=== PATIENT | male | born 1965 | race Caucasian/White ===

== ENCOUNTER 2017-02-22 07:23 | Emergency (ER) | payer OTHER ==
[~2017-02-22] VITALS: Ht 172.7 cm; Wt 80.1 kg
[2017-02-22 07:32] VITALS: Ht 172.7 cm; Wt 80.1 kg
[2017-02-22] MEDS ORDERED: SULF1TAB31 PO (07:46)
--- NOTE | 2017-02-22 07:46 | ERD ---
ER Documentation Chief Complaint Date/Time DATE: 02/22/17 Chief Complaint Wound of left foot x 4 days HPI The patient is a 51-year-old male who presents to the Emergency Department with complaint of a wound to the dorsum of the left foot. The patient reports that four days ago he noted a small blister to the dorsum of the left foot, just proximal to the fourth toe. After presentation, the patient developed minimal surrounding redness, warmth and tenderness. Two days ago he noted that the blister popped, and since, the base has been exposed. He continues to experience a throbbing, 3/10, constant pain to the site of the wound, and the surrounding erythema remains present. He denies any radiation of pain. Denies purulent drainage or bleeding from the wound. Denies any red streaking. Denies fevers, sweats, chills, nausea or vomiting. Denies chest pain, palpitations or shortness of breath. Denies history of diabetes, HIV or any other immunocompromised state. Denies coldness or swelling to the distal extremity. Denies any restricted range of motion. Denies any direct trauma or known injury to the foot. ROS All systems reviewed and are negative except as per history of present illness. Medications Home Meds Active Scripts Ibuprofen* (Motrin*) 600 Mg Tab, 600 MG PO Q6, #30 TAB Prov:CHARLIE BAUER PA-C 02/22/17 Cephalexin* (Keflex*) 500 Mg Capsule, 500 MG PO QID for 7 Days, #28 CAP Prov:HCARLIE BAUER PA-C 02/22/17 Sulfamethoxazole/Trimethoprim* (Bactrim Ds* Tablet) 1 Each Tablet, 1 TAB PO BID for 10 Days, TAB Prov:CHARLIE BAUER PA-C 02/22/17 Allergies Allergies: Coded Allergies: No Known Allergy (Unverified , 02/22/17) PMhx/Soc Medical and Surgical Hx: pt denies Medical Hx History of Surgery: Yes (knee surgery as a kid) Anesthesia Reaction: No Hx Neurological Disorder: No Hx Respiratory Disorders: No Hx Cardiac Disorders: No Hx Psychiatric Problems: No Hx Miscellaneous Medical Probl: No Hx Alcohol Use: No Hx Substance Use: No Hx Tobacco Use: Yes Smoking Status: Current every day smoker Physical Exam Vitals Vital Signs Date Time Temp Pulse Resp B/P Pulse Ox O2 Delivery O2 Flow Rate FiO2 02/22/17 07:32 98.1 71 18 139/71 99 Physical Exam GENERAL: Well-developed, well-nourished, male, in no acute distress. HEENT: Head is normocephalic, atraumatic. No scleral pallor or icterus. Conjunctiva pink. Moist mucous membranes. No lip or tongue swelling. Clear oropharynx. NECK: Supple. No tenderness. Full range of motion. RESPIRATORY: Lungs are clear to auscultation bilaterally. Equal breath sounds. Normal expiratory effort. CARDIOVASCULAR: Regular rate and rhythm. S1 and S2 normal. EXTREMITIES: No clubbing, cyanosis, or edema. Normal skin perfusion. Joints non- tender, no joint effusion. Full range of motion of both the upper and lower extremities bilaterally. Distal pulses are palpable, 2+ bilaterally. Capillary refill is less than 2 seconds. NEUROLOGIC: The patient is alert, awake, and oriented x 3. No focal neurologic deficits. INTEGUMENT: 0.7 cm x 0.7 cm superficial wound to the dorsum of the left foot, proximal to the fourth toe, with a 1 cm region of surrounding erythema, warmth and tenderness. No swelling. No drainage. No bleeding. No lymphatic streaking. No crepitus. No underlying structure visualized. PSYCHIATRIC: Cooperative. Appropriate. Results 24 hrs Current Medications Medications (Trade) Dose Ordered Sig/Cynthia Route PRN Reason Start Time Stop Time Status Last Admin Dose Admin Bacitracin (Bacitracin Oint (Ud)) 1 applic ONCE ONCE TOP 02/22/17 08:00 02/22/17 08:01 Procedures/MDM MEDICAL DECISION MAKING: This is a 51-year-old male presenting to the Emergency Department with complaint of spreading erythema surrounding wound to the left foot. The patient had a superficial wound with surrounding spreading erythema on the dorsum of his left foot that is warm to touch and tender to palpation on physical examination. However, the patient's oropharynx and airway was patent, and exhibited no breathing difficulties, wheezing, tongue swelling or lip swelling. His vital signs were stable, and he was afebrile, with no recent history of fevers or chills. The differential diagnosis includes, but is not limited to, allergic reaction, insect bite, fungal infection, cellulitis, MRSA, impetigo, shingles, herpes simplex virus, burn, abscess, dermatitis, viral syndrome, candidiasis, medication reaction, osteomyelitis, Daniel Raghavendra syndrome, epidermolysis bullosa, toxic epidermal necrolysis, meningococcemia. The patient's wound was cleansed. Bacitracin and dressing was applied. After rest, the patient has no new complaints, and the patient remains stable with appropriate vital signs and no signs of acute distress. Upon my review and interpretation of the patient's presentation and overall ER course, I believe the patient's symptoms are most consistent with superficial wound with surrounding cellulitis. The patient has no history of HIV or diabetes. No lymphatic streaking or crepitus were noted. At this time the patient is in stable condition and therefore can be discharged home with prescriptions for Ibuprofen, Bactrim and Keflex, and strict return precautions for signs of deteriorating or worsening condition. His region of cellulitis was outlined and dated for further evaluation. The patient is strongly advised to follow up with a primary care provider within 1-2 days for wound check, reevaluation and further management, or return to the ER sooner for worsening symptoms. Additionally, he is advised to return sooner if he notices the erythema spreading beyond the marked borders. I shared my medical decision making and plan with the patient at length and in great detail, and he verbally understands and agrees with the plan for further observation and care as an outpatient. At the time of discharge all questions were answered. SMOKING CESSATION: A discussion was held by me with the patient regarding smoking cessation. The risks of continued smoking, including hypertension, cardiac, cerebrovascular, and other end organ injury were discussed. Furthermore , the risk of emphysema, cancer, chronic bronchitis, and other pulmonary complications were emphasized. The risks and benefits of medical therapy including nicotine replacement therapy were discussed. The patient is strongly encouraged to pursue a smoking cessation program. Time spent in counseling 5 minutes. Departure Diagnosis: Primary Impression: Unspecified open wound, left foot, initial encounter Additional Impression: Cellulitis of left foot Condition: Stable Patient Instructions: Cellulitis, Wound Care Additional Instructions: Call your primary care doctor TOMORROW for an appointment during the next 1-2 days for wound check, reevaluation and further management. See the doctor sooner or return here if your condition worsens before your appointment time, or if the redness spreads beyond the current borders. CHARLIE BAUER PA-C Feb 22, 2017 07:46
[2017-02-22] MEDS ORDERED: CEPH-443 PO (07:47)
[2017-02-22] MEDS ORDERED: IBUP-1542 PO (07:47)
[2017-02-22] MEDS ORDERED: BACITRACIN 0.9 GM OINT TOP ONE (08:00)
== END 2017-02-22 07:55 | disposition home or self-care (01) ==
LOC: FTE 07:23
DX: S91.302A Unspecified open wound, left foot, initial encounter (principal); L03.116 Cellulitis of left lower limb; F17.210 Nicotine dependence, cigarettes, uncomplicated; X58.XXXA Exposure to other specified factors, initial encounter; Y92.9 Unspecified place or not applicable
CPT/HCPCS: Z7502; Z7610; 99284